=== PATIENT | male | born 1970 | race Caucasian/White ===

== ENCOUNTER 2020-06-10 09:47 | Outpatient (CLI) | payer BC ==
[2020-06-10 11:53] LABS: BASOPHILS % (AUTO) 0.4 %; EOSINOPHILS # (AUTO) 0.1 10^3/uL (0.0-0.7); HGB - HEMOGLOBIN 13.8 g/dL (14.0-18.0); LYMPHOCYTES # (AUTO) 1.9 10^3/uL (1.5-3.5); LYMPHOCYTES % (AUTO) 34.9 %; MEAN CORPUSCULAR HEMOGLOBIN 23.1 pg (27.0-31.0); MEAN CORPUSCULAR VOLUME 72.2 fL (80.0-94.0); MONOCYTES # (AUTO) 0.4 10^3/uL (0.0-1.0); MONOCYTES % (AUTO) 7.4 %; NEUTROPHILS # (AUTO) 3.1 10^3/uL (1.5-6.6); NEUTROPHILS % (AUTO) 54.8 %; PLT - PLATELET COUNT 149 10^3/uL (130-450); RED BLOOD COUNT 5.97 10^6/uL (4.70-6.10); RED CELL DISTRIBUTION WIDTH 15.4 % (12.0-15.0); WHITE BLOOD COUNT 5.6 x10^3/uL (4.8-10.8)
[2020-06-10 12:07] LABS: ALBUMIN 4.2 g/dL (3.2-5.5); ALBUMIN/GLOBULIN RATIO 1.4 (1.0-2.2); ALKALINE PHOSPHATASE 69 IU/L (42-121); ALT ALANINE AMINOTRANSFERASE 73 IU/L (10-60); AST ASPARTATE AMINOTRANSFERASE 56 IU/L (10-42); BILIRUBIN,TOTAL 1.1 mg/dL (0.2-1.0); BUN - BLOOD UREA NITROGEN 12 mg/dL (6-20); CALCIUM 9.2 mg/dL (8.5-10.3); CARBON DIOXIDE - CO2 29 mmol/L (21-32); CHLORIDE 102 mmol/L (101-111); CHOL/HDL RATIO 6.2 (<5.0); CHOLESTEROL 185 mg/dL; CREATININE 0.8 mg/dL (0.6-1.2); GLUCOSE 129 mg/dL (70-100); HDL CHOLESTEROL 30 mg/dL; LDL CHOLESTEROL,CALCULATED 103 mg/dL; LDL/HDL RATIO 3.4 (<3.6); SODIUM 137 mmol/L (135-145); TOTAL PROTEIN 7.3 g/dL (6.7-8.2); VLDL CHOLESTEROL 52 mg/dL
[2020-06-10 12:12] LABS: CREATININE,URINE 147.7 mg/dL; MICROALBUM/CREATININE RATIO,UR 12.2 ug/mg (<30.0); MICROALBUMIN,URINE 1.8 mg/dL (0-300.0)
[2020-06-10 14:15] LABS: HEMOGLOBIN A1c% 7.7 % (4.27-6.07)
== END 2020-06-10 23:59 | disposition home or self-care (01) ==
LOC: LAB.WCP 09:47
PROVIDERS: ATTEND Physician Assistant
DX: E11.9 Type 2 diabetes mellitus without complications (principal); E78.5 Hyperlipidemia, unspecified
CPT/HCPCS: 36415; 80053; 80061; 82043; 82570; 83036; 83721; 85025

== ENCOUNTER 2020-07-07 07:30 | Outpatient (CLI) | payer BC ==
--- NOTE | 2020-07-07 12:38 | Ultrasound Report ---
PROCEDURE: Abdomen Limited INDICATIONS: ELEVATED LFT'S TECHNIQUE: Real-time scanning was performed of the abdominal and retroperitoneal organs, with image documentatio n. COMPARISON: None. FINDINGS: Liver: Liver is mildly enlarged measuring 17 cm with steatosis. Gallbladder: Gallbladder demonstrates no stones. Wall thickness measures 1 mm. Biliary ducts: Intrahepatic bile ducts are non-dilated. Extrahepatic bile duct caliber measures 6 m m. Normal is 6-7 mm or less in diameter, or 10 mm or less post-cholecystectomy. Pancreas: Visualized portions of the pancreas are sonographically normal. Kidneys: Kidneys are normal in size and echotexture. Right kidney measures 12.1 cm long. No hydron ephrosis or nephrolithiasis. No solid masses. Aorta: Visualized aorta is normal in caliber at less than 3 cm. Iliacs: Proximal common iliac arteries are normal in caliber at less than 2.5 cm. IVC: Intrahepatic inferior vena cava is patent. IMPRESSION: Hepatomegaly with steatosis. Reviewed by: Ashleigh White MD on 07/07/2020 12:36 PM PDT Approved by: Ashleigh White MD on 07/07/2020 12:36 PM PDT Station ID: [id number]
--- NOTE | 2020-07-07 13:12 | XRAY Report ---
PROCEDURE: Hand 2 View RT INDICATIONS: RIGHT HAND PAIN TECHNIQUE: 2 views of the hand(s) acquired. COMPARISON: none FINDINGS: Bones: No fractures or dislocations. No suspicious bony lesions. Soft tissues: No suspicious soft tissue calcifications. IMPRESSION: No visualized acute fracture or dislocation. However, occult injury cannot be excluded. Recommend yaritza rt interval imaging follow-up in 7-10 days as clinically indicated for additional evaluation. Reviewed by: Ashleigh White MD on 07/07/2020 1:11 PM PDT Approved by: Ashleigh White MD on 07/07/2020 1:11 PM PDT Station ID: [id number]
== END 2020-07-07 07:31 | disposition home or self-care (01) ==
LOC: DI 07:30
PROVIDERS: ATTEND Physician Assistant
DX: M79.641 Pain in right hand (principal); R74.8 Abnormal levels of other serum enzymes; K76.0 Fatty (change of) liver, not elsewhere classified
CPT/HCPCS: 76705

== ENCOUNTER 2020-09-03 16:11 | Outpatient (CLI) | payer BC | END 2020-09-03 16:12 | disposition home or self-care (01) | LOC: COV 16:11 | PROVIDERS: ATTEND Orthopaedic Surgery | DX: Z01.818 Encounter for other preprocedural examination (principal); M65.30 Trigger finger, unspecified finger; Z20.828 Contact with and (suspected) exposure to other viral communicable diseases ==

== ENCOUNTER 2020-09-08 06:28 | Day surgery (SDC) | payer BC ==
[2020-09-08] MEDS ORDERED: MIDAZOLAM 2 MG/2 ML VIAL IVP ONE (06:29)
[2020-09-08] MEDS ORDERED: fentaNYL 100 MCG/2 ML VIAL IVP ONE (06:29)
[2020-09-08] MEDS ORDERED: PROPOFOL 200 MG/20 ML VIAL IVP ONE (06:29)
[2020-09-08] MEDS ORDERED: LACTATED RINGERS 1,000 ML IV ONE ×2 (06:42→07:50)
--- NOTE | 2020-09-08 07:14 | ANESTHESIA ---
Pre-Anesthesia VS, & Labs - Diagnosis L 3rd digit trigger finger - Procedure L 3rd digit trigger finger release Vital Signs: Temp Pulse Resp BP Pulse Ox 37 C 89 16 157/127 H 97 09/08/20 06:32 09/08/20 06:32 09/08/20 06:32 09/08/20 06:32 09/08/20 06:32 Height: 5 ft 8 in Weight (kg): 97.3 kg Body Mass Index: 32.5 BMI Classification: Obese - NPO >8 hours - Lab Results Current Lab Results: Laboratory Tests 09/08/20 06:46: POC Whole Bld Glucose 150 H Lab results reviewed: Yes Home Medications and Allergies Home Medications: Ambulatory Orders Acetaminophen [Tylenol] 650 mg PO Q6H PRN 09/06/20 Losartan/Hydrochlorothiazide [Hyzaar 100-25 Tablet] 1 each PO DAILY 09/06/20 Naproxen Sodium [Aleve] 220 mg PO ONCE PRN 09/06/20 metFORMIN [Glucophage] 500 mg PO BIDWM 09/06/20 Acetaminophen [Tylenol] 650 mg PO Q6H PRN 09/06/20 Losartan/Hydrochlorothiazide [Hyzaar 100-25 Tablet] 1 each PO DAILY 09/06/20 Naproxen Sodium [Aleve] 220 mg PO ONCE PRN 09/06/20 metFORMIN [Glucophage] 500 mg PO BIDWM 09/06/20 Allergies/Adverse Reactions: Allergies Allergy/AdvReac Type Severity Reaction Status Date / Time latex Allergy Hives Verified 09/06/20 10:07 chocolate Allergy Hives Uncoded 09/06/20 10:07 Anes History & Medical History - Anesthetic History Anesthesia Complications: reports: No previous complications, Muscle weakness Family history of Anesthesia Complications: Denies Family history of Malignant Hyperthermia: Denies - Medical History Cardiovascular: reports: Hypertension, High cholesterol Pulmonary: reports: Asthma Gastrointestinal: reports: None Urinary: reports: None Musculoskeletal: reports: Osteoarthritis Endocrine/Autoimmune: reports: Type 2 diabetes Skin: reports: None - Surgical History Orthopedic: Carpal Tunnel surgery, Other Exam General: Alert, Oriented x3, Cooperative Dental: WNL Mouth Openin Fingerbreadth Mallampati classification: II Thyromental Distance: greater than 6 cm Respiratory: Lungs clear, Normal breath sounds, No respiratory distress Cardiovascular: Regular rate Neurological: Normal speech Mental/Cognitive Status: Alert/Oriented X3, Normal for patient Cognitive Status: Within normal limits Plan Anesthesia Type: MAC Consent for Procedure(s) Verified and Reviewed: Yes Code Status: Attempt Resuscitation ASA classification: 2-Mild systemic disease Is this case an emergency?: No
[2020-09-08] MEDS ORDERED: LIDOCAINE 1%-EPI 1:100000 20 ML MDV ONE (07:21)
[2020-09-08] MEDS ORDERED: LIDOCAINE 1%-EPI 1:100000 20 ML MDV SUBQ ONE ×2 (07:35)
--- NOTE | 2020-09-08 07:55 | OPERATIVE REPORT ---
Operative Report - General Procedure Date: 09/08/20 Planned Procedure: Flexor tendon sheath release left third finger Pre-Op Diagnosis: Trigger finger left third finger Procedure Performed: Flexor tendon sheath release left third finger Post Op Diagnosis: Same as preoperative diagnosis - Procedure Note Primary Surgeon: Stu Salamanca MD Anesthesia Provider: Whit Vasques Anesthesia Technique: Local, MAC Estimated Blood Loss (mL): 1 Indications: He has a history of painful triggering of the left third finger. He has had trigger finger releases with open procedures to 3 other fingers in the past. Findings: He had some thickening of the flexor tendon sheath and overt triggering of the left third finger Complications: none - Other Other Information/Narrative: The patient was brought to the operating room, placed in the supine position, left arm placed on a arm extension table. Left upper extremity was prepped and draped in a sterile manner in the usual fashion. A timeout procedure was performed by the entire operating room team and all were in agreement. 8 cc 1% Xylocaine with epinephrine was injected directly over the flexor tendon at the distal palmar crease region. After satisfactory anesthesia was achieved, a transverse 1 cm incision was made in line with the left third finger and at the level of the distal palmar crease. Once the skin was incised, a spreading technique was utilized to expose the flexor tendon. Right angle retractors were placed on each side of the flexor tendon. The flexor tendon sheath was identified and was released from proximal to distal using tenotomy scissors. The patient was asked to actively extend and flex his fingers and there is no sign of triggering with active motion of the left third finger. Wound was irrigated. The incision was closed with two 4-0 nylon sutures. A sterile Xeroform dressing was applied. He tolerated procedure well
[2020-09-08 08:06] VITALS: BP 142/100
--- NOTE | 2020-09-08 10:17 | ANESTHESIA POST OP EVALUATION ---
Anesthesia Post Eval - Post Anesthesia Eval Vitals: Last Vital Signs Temp 36.3 C L 09/08/20 08:06 Pulse 86 09/08/20 08:06 Resp 16 09/08/20 08:06 BP 142/100 H 09/08/20 08:06 Pulse Ox 96 09/08/20 08:06 CV Function Including HR & BP: positive: Stable Pain Control: positive: Satisfactory Nausea & Vomiting: positive: Negative Mental Status: positive: Baseline Respiratory Status: Airway Patent Hydration Status: Satisfactory Anesthesia Complications: positive: None
== END 2020-09-08 06:29 | disposition home or self-care (01) ==
LOC: SDS 06:28
PROVIDERS: ATTEND Orthopaedic Surgery
DX: M65.332 Trigger finger, left middle finger (principal); I10 Essential (primary) hypertension; E11.9 Type 2 diabetes mellitus without complications
CPT/HCPCS: 26055; J7120